=== PATIENT | male | born 1985 | race African-American/Black ===

== ENCOUNTER 2022-01-09 09:05 | Emergency (ER) | payer SELFPAY ==
[2022-01-09] MEDS ORDERED: Sodium Chloride 0.9% 2.5 ML Syringe FLUSH PRN (09:37)
[2022-01-09] MEDS ORDERED: Ondansetron 4 MG/2 ML SDV IVPUSH ONE (09:37)
[2022-01-09] MEDS ORDERED: Sodium Chloride 0.9% 1,000 ML IV ONE (09:37)
[2022-01-09] MEDS ORDERED: Sodium Chloride 0.9% 10 ML Syringe FLUSH PRN (09:37)
[2022-01-09 10:09] LABS: BLOOD UREA NITROGEN,BUN 17 mg/dL (7.0-18.0); CARBON DIOXIDE,CO2 24.5 mmol/L (21.0-32.0); CHLORIDE,CL 106 mmol/L (98-107); GLUCOSE RANDOM 119 mg/dL (74-106); LIPASE 122 U/L (73-393); SODIUM,NA 140 mmol/L (136-148)
[2022-01-09] MEDS ORDERED: Heparin Sodium 5,000 Units/ML Vial IVPUSH ONE (10:30)
[2022-01-09] MEDS ORDERED: Aspirin 81 MG Tab.Chew PO ONE (10:30)
[2022-01-09] MEDS ORDERED: Heparin Sodium/0.45% NaCl 500 ML IV SCH (10:30)
== END 2022-01-09 12:46 ==
LOC: MW.ED 09:05
DX: I21.4 Non-ST elevation (NSTEMI) myocardial infarction (principal); Z20.822 Contact with and (suspected) exposure to COVID-19
CPT/HCPCS: 36415; 71045; 80053; 81003; 83690; 84484; 85025; 85730; 87635; 93005; 96365; 96366; 96375; 96376; 99285; A9270; J1644; J2405; J3490; J7030; U0002

== ENCOUNTER 2022-08-01 15:48 | Emergency (ER) | payer SELFPAY ==
[2022-08-01 16:39] LABS: CORONAVIRUS COVID-19 NAA NEGATIVE (NEGATIVE); INFLUENZA A NAA NEGATIVE (NEGATIVE); INFLUENZA B NAA NEGATIVE (NEGATIVE); RESPIRATORY SYNCYTIAL VIR NAA NEGATIVE (NEGATIVE)
== END 2022-08-01 17:25 | disposition home or self-care (01) ==
LOC: MW.ED 15:48
DX: J01.00 Acute maxillary sinusitis, unspecified (principal); Z88.8 Allergy status to other drugs, medicaments and biological substances; Z20.822 Contact with and (suspected) exposure to COVID-19
CPT/HCPCS: 0241U; 99283

== ENCOUNTER 2022-09-03 18:01 | Emergency (ER) | payer BC ==
[2022-09-03] MEDS ORDERED: Acetaminophen/HYDROcodone 325-5 MG Tab PO ONE (18:38)
== END 2022-09-03 19:39 | disposition home or self-care (01) ==
LOC: MW.ED 18:01
DX: M54.50 Low back pain, unspecified (principal); W01.0XXA Fall on same level from slipping, tripping and stumbling without subsequent striking against object, initial encounter
CPT/HCPCS: 72100; 72220; 99283; A9270

== ENCOUNTER 2022-10-25 07:28 | Emergency (ER) | payer BC ==
[2022-10-25] MEDS ORDERED: Ibuprofen 400 MG Tab PO ONE (08:07)
[2022-10-25] MEDS ORDERED: Acetaminophen 325 MG Tab PO ONE (08:07)
[2022-10-25 08:19] LABS: CORONAVIRUS COVID-19 NAA NEGATIVE (NEGATIVE); INFLUENZA A NAA NEGATIVE (NEGATIVE); INFLUENZA B NAA NEGATIVE (NEGATIVE); RESPIRATORY SYNCYTIAL VIR NAA NEGATIVE (NEGATIVE)
[2022-10-25] MEDS ORDERED: Ondansetron 4 MG Tab PO ONE (08:31)
[2022-10-25 10:05] LABS: CARBON DIOXIDE,CO2 25.1 mmol/L (21.0-32.0); POTASSIUM,K 4.1 mmol/L (3.5-5.1)
== END 2022-10-25 10:51 | disposition home or self-care (01) ==
LOC: MW.ED 07:28
DX: M62.82 Rhabdomyolysis (principal); Z88.8 Allergy status to other drugs, medicaments and biological substances; Z20.822 Contact with and (suspected) exposure to COVID-19
CPT/HCPCS: 0241U; 36415; 71045; 80053; 82550; 85025; 99285; A9270

== ENCOUNTER 2023-01-17 22:06 | Emergency (ER) | payer BC ==
[2023-01-17] MEDS ORDERED: Morphine 4 MG/ML Syringe IVPUSH ONE (22:45)
[2023-01-17] MEDS ORDERED: Ondansetron 4 MG/2 ML SDV IVPUSH ONE (22:45)
[2023-01-17] MEDS ORDERED: Sodium Chloride 0.9% 1,000 ML IV ONE ×2 (22:45→23:30)
[2023-01-17 23:04] LABS: BASOPHILS PERCENT AUTO 0.2 % (0.0-1.5); EOSINOPHILS PERCENT AUTO 0.1 % (0.0-7.0); HEMATOCRIT 43.1 % (38.0-50.0); HEMOGLOBIN 15.3 g/dL (13.0-17.0); LYMPHOCYTES ABSOLUTE AUTO 1.1 K/uL (0.6-2.4); LYMPHOCYTES PERCENT AUTO 11.1 % (16.0-40.0); MEAN CORPUSCULAR HEMOGLOBIN 30.8 pg (27.0-32.0); MEAN CORPUSCULAR HGB CONC 35.5 g/dL (31.0-37.0); MEAN CORPUSCULAR VOLUME 86.9 fL (80.0-98.0); MONOCYTES ABSOLUTE AUTO 0.5 K/uL (0.0-0.8); MONOCYTES PERCENT AUTO 4.8 % (0.0-15.0); NEUTROPHILS ABSOLUTE AUTO 8.3 K/uL (1.4-5.7); NEUTROPHILS PERCENT AUTO 83.8 % (48.0-80.0); PLATELET COUNT,PLT 258 K/uL (150-400); RED BLOOD CELL COUNT 4.96 M/uL (4.50-5.90); WHITE BLOOD CELL COUNT,WBC 9.92 K/uL (4.0-11.0)
[2023-01-17 23:15] LABS: AMPHETAMINES SCREEN, URINE NEGATIVE (CUTOFF=500); BARBITURATE SCREEN,URINE NEGATIVE (CUTOFF=200); BENZODIAZEPINES SCREEN,URINE NEGATIVE (CUTOFF=150); BUPRENORPHINE SCREEN,URINE NEGATIVE (CUTOFF=10); METHADONE SCREEN, URINE NEGATIVE (CUTOFF=200); METHAMPHETAMINES SCREEN, URINE NEGATIVE (CUTOFF=500); OXYCODONE SCREEN,URINE NEGATIVE (CUT0FF=100); PCP SCREEN,URINE NEGATIVE (CUTOFF=25); PROPOXYPHENE SCREEN,URINE NEGATIVE (CUTOFF=300); THC SCREEN,URINE 20 NG/ML PRESUMPTIVE POSITIVE (CUTOFF=50)
[2023-01-17 23:27] LABS: A/G RATIO 1.1 (0.9-1.6); ALBUMIN 4.7 g/dL (3.4-5.0); CARBON DIOXIDE,CO2 26.7 mmol/L (21.0-32.0); CREATININE 1.7 mg/dL (0.8-1.3); EST CRCL DRUG DOSING (CG) 67.83 mL/min; MAGNESIUM 2.4 mg/dL (1.8-2.4); POTASSIUM,K 3.7 mmol/L (3.5-5.1)
== END 2023-01-18 00:43 | disposition home or self-care (01) ==
LOC: MW.ED 22:06
DX: H66.92 Otitis media, unspecified, left ear (principal); M62.82 Rhabdomyolysis; Z88.8 Allergy status to other drugs, medicaments and biological substances
CPT/HCPCS: 36415; 80053; 80305; 82550; 83735; 85025; 96374; 96375; 99283; J2270; J2405; J7030; 99284

== ENCOUNTER 2023-07-11 05:28 | Emergency (ER) | payer SELFPAY ==
[2023-07-11] MEDS ORDERED: Sodium Chloride 0.9% 2.5 ML Syringe FLUSH PRN (05:48)
[2023-07-11] MEDS ORDERED: Sodium Chloride 0.9% 10 ML Syringe FLUSH PRN (05:48)
[2023-07-11 06:15] LABS: BASOPHILS ABSOLUTE AUTO 0.03 K/uL (0.00-0.20); BASOPHILS PERCENT AUTO 0.6 % (0.0-1.0); EOSINOPHILS ABSOLUTE AUTO 0.14 K/uL (0.00-0.45); EOSINOPHILS PERCENT AUTO 2.9 % (0.0-6.0); HEMATOCRIT 41.3 % (42.0-52.0); HEMOGLOBIN 14.6 g/dL (14.0-18.0); IMMATURE GRAN ABSOLUTE AUTO 0.01 K/uL (0.00-0.05); IMMATURE GRAN PERCENT AUTO 0.2 % (0.0-0.4); LYMPHOCYTES ABSOLUTE AUTO 1.78 K/uL (1.00-4.80); LYMPHOCYTES PERCENT AUTO 37.5 % (24.0-44.0); MEAN CORPUSCULAR HEMOGLOBIN 31.4 pg (28.0-32.0); MEAN CORPUSCULAR HGB CONC 35.4 g/dL (32.0-36.0); MEAN CORPUSCULAR VOLUME 88.8 fL (83.0-99.0); MEAN PLATELET VOLUME 9.4 fL (9.4-12.4); MONOCYTES ABSOLUTE AUTO 0.49 K/uL (0.00-0.80); MONOCYTES PERCENT AUTO 10.3 % (0.0-8.0); NEUTROPHILS PERCENT AUTO 48.5 % (41.0-71.0); PLATELET COUNT,PLT 206 K/uL (150-400); RED BLOOD CELL COUNT 4.65 M/uL (4.52-5.90); WHITE BLOOD CELL COUNT,WBC 4.75 K/uL (3.9-11.3)
[2023-07-11 06:50] LABS: A/G RATIO 1.1 (0.9-1.6); ALBUMIN 3.8 g/dL (3.4-5.0); BILIRUBIN TOTAL 0.4 mg/dL (0.2-1.0); CALCIUM 8.5 mg/dL (8.5-10.1); CARBON DIOXIDE,CO2 25.6 mmol/L (21.0-32.0); CREATININE 1.1 mg/dL (0.8-1.3); EST CRCL DRUG DOSING (CG) 107.76 mL/min; PHOSPHORUS 2.9 mg/dL (2.6-4.7); POTASSIUM,K 3.8 mmol/L (3.5-5.1); PROTEIN TOTAL,TP 7.2 g/dL (6.4-8.2)
[2023-07-11] MEDS ORDERED: Sodium Chloride 0.9% 1,000 ML IV ONE (06:52)
[2023-07-11 08:26] LABS: C. TRACHOMATIS BY PCR NOT DETECTED; N. GONORRHOEAE BY PCR NOT DETECTED
== END 2023-07-11 08:22 | disposition home or self-care (01) ==
LOC: MW.ED 05:28
DX: L52 Erythema nodosum (principal); R25.2 Cramp and spasm; Z88.8 Allergy status to other drugs, medicaments and biological substances
CPT/HCPCS: 36415; 80053; 82550; 83690; 83735; 84100; 85025; 87491; 87591; 96360; 99283; J3490; J7030